=== PATIENT | female | born 1930 | race Caucasian/White ===

== ENCOUNTER 2016-09-22 06:37 | Inpatient (IN) | payer MEDICARE, MEDICAID ==
[~2016-09-22] VITALS: Ht 152.4 cm; Wt 85.5 kg
[2016-09-22] MEDS ORDERED: EPINEPHrine INJ 1 MG/ML 1ML VIAL/AMP As Ordered ONE (06:53)
[2016-09-22] MEDS ORDERED: PROPOFOL 200 MG/20 ML VIAL As Ordered ONE (06:54)
[2016-09-22] MEDS ORDERED: LIDOCAINE 2% INJ 100 MG/5 ML SDV (FOR ANES.) As Ordered ONE (06:54)
[2016-09-22] MEDS ORDERED: LEVALBUTEROL 1.25 MG/0.5 ML CONCENTRATE NEB As Ordered ONE (07:15)
[2016-09-22] MEDS ORDERED: LR 1,000 ML IV SCH (07:15)
[2016-09-22] MEDS ORDERED: LEVALBUTEROL 1.25 MG/0.5 ML CONCENTRATE NEB INH ONE (07:30)
--- NOTE | 2016-09-22 08:07 | ROOR ---
Patient Name: Ashley De Dios Procedure Date: 09/22/2016 7:20 AM Date of : 1930 Age: 86 Room: Main OR Gender: Female Note Status: Finalized Procedure: Colonoscopy to the Splenic Flexure(POOR PREP) Indications: Abnormal CT of the GI tract Providers: Shashank Amezcua MD Referring MD: NICHELLE RAYGOZA JR, MD Requesting Provider: Medicines: Monitored Anesthesia Care Complications: No immediate complications. Procedure: Pre-Anesthesia Assessment: - The heart rate, respiratory rate, oxygen saturations, blood pressure, adequacy of pulmonary ventilation, and response to care were monitored throughout the procedure. The Colonoscope was introduced through the anus and advanced to the splenic flexure. The quality of the bowel preparation was unsatisfactory. Findings: The perianal and digital rectal examinations were normal. Scattered small-mouthed diverticula were found in the recto-sigmoid colon, in the sigmoid colon and in the descending colon. The exam was otherwise without abnormality. A large amount of liquid semi-liquid stool was found in the entire colon, precluding visualization. Area of mucosal thickening was normal at colonoscopy. No intraluminal lesion found from the rectum to the splenic flexure. Scope not advanced beyond splenic flexure due to poor prep. Impression: - Preparation of the colon was unsatisfactory. - Diverticulosis in the recto-sigmoid colon, in the sigmoid colon and in the descending colon. - The examination was otherwise normal. - Stool in the entire examined colon. - No specimens collected. Recommendation: - Patient has a contact number available for emergencies. The signs and symptoms of potential delayed complications were discussed with the patient. Return to normal activities tomorrow. Written discharge instructions were provided to the patient. - Discharge patient to home. - Continue present medications. Shashank Amezcua MD Shashank Amezcua MD 09/22/2016 8:07:15 AM This report has been signed electronically. Number of Addenda: 0 Note Initiated On: 09/22/2016 7:20 AM Estimated Blood Loss: Estimated blood loss: none.
[2016-09-22] MEDS: VITAMIN D 1,000 INTERNATIONAL UNITS TABLET PO SCH (09:00)
[2016-09-22] MEDS ORDERED: LOSARTAN 50 MG TAB PO SCH (09:00)
[2016-09-22] MEDS ORDERED: ONDANSETRON 4MG/2ML VIAL (J2405) As Ordered ONE (09:15)
[2016-09-22] MEDS ORDERED: ONDANSETRON 4MG/2ML VIAL (J2405) IV STA (09:22)
[2016-09-22] MEDS ORDERED: ONDANSETRON 4MG/2ML VIAL (J2405) IV PRN (11:15)
[2016-09-22 11:38] LABS: BASO % 0.2 % (0.0-1.0); EOS % 0.5 % (0.0-3.0); LARGE UNSTAINED CELL # 0.2 K/mm3 (0.0-0.4); LYMPH # 1.6 K/mm3 (1.5-4.5); LYMPH % 19.6 % (24.0-44.0); MEAN CORPUSCULAR HEMOGLOBIN 31.3 pg (27.0-33.0); MEAN CORPUSCULAR HGB CONC 33.7 g/dl (32.0-36.5); MONO # 0.6 K/mm3 (0.0-0.8); MONO % 7.5 % (0.0-5.0); NEUTROPHILS # 5.6 K/mm3 (1.8-7.7); NEUTROPHILS % 70.2 % (36.0-66.0); PLATELET COUNT, AUTOMATED 176 k/mm3 (150-450); RED CELL DISTRIBUTION WIDTH 12.1 % (11.5-14.5)
[2016-09-22 11:50] VITALS: BP 183/92
[2016-09-22] MEDS ORDERED: BISACODYL 10 MG SUPP PR PRN (12:15)
[2016-09-22] MEDS ORDERED: CALCIUM CARBONATE 500 MG CHEW U/D PO PRN (12:15)
[2016-09-22 12:16] LABS: ALBUMIN 3.5 GM/DL (3.2-5.2); ALBUMIN/GLOBULIN RATIO 0.97 (1.00-1.93); BILIRUBIN,TOTAL 0.5 MG/DL (0.2-1.0); CALCIUM LEVEL 9.8 MG/DL (8.8-10.2); CREATININE FOR GFR 1.52 MG/DL (0.55-1.02); GLOMERULAR FILTRATION RATE 34.4 (>32); MAGNESIUM LEVEL 2.1 MG/DL (1.8-2.4); POTASSIUM SERUM 3.5 MEQ/L (3.5-5.1); TOTAL PROTEIN 7.1 GM/DL (6.4-8.2)
[2016-09-22] MEDS ORDERED: GASTROGRAFIN SOLUTION 30ML PO ONE (13:00)
[2016-09-22] MEDS ORDERED: GASTROGRAFIN SOLUTION 30ML (Q9963) PO ONE (13:00)
[2016-09-22] MEDS: SENOKOT S TAB PO SCH ×2 (13:08→21:43)
[2016-09-22] MEDS: HEPARIN SOD (PORCINE) 5000 UNITS/ML VIAL SC SCH ×2 (13:09→21:43)
[2016-09-22] MEDS: LACTOBACILLUS ACIDOPHILUS CAP (BACID) PO SCH (13:09)
[2016-09-22] MEDS: ASPIRIN 81 MG ENTERIC TAB PO SCH (13:10)
[2016-09-22] MEDS ORDERED: POTASSIUM CHLORIDE 10 MEQ SR TABLET PO ONE (13:15)
--- NOTE | 2016-09-22 14:01 | HPE ---
DATE OF ADMISSION: 09/22/2016 PRIMARY CARE PROVIDER: Bennie Faulkner Jr., MD CHIEF COMPLAINT: Abdominal distention. HISTORY OF PRESENT ILLNESS: This is an 86-year-old female patient with underlying medical history of open reduction internal fixation of right ankle, chronic kidney disease (CKD) stage III, baseline creatinine 1.4 to 1.7, diastolic congestive heart failure, ejection fraction of 55-65%, with mild left ventricular hypertrophy (LVH), arthritis, dementia, hypertension, osteoporosis, depression, hyperthyroidism, breast cancer stage I, status post left mastectomy, chronic left shoulder pain, iron deficiency anemia, Clostridium (C) difficile colitis. Patient is a group home resident at [facility]. For the past couple of months has been having persistent abdominal distention. Today, patient was undergoing colonoscopy by Dr. Amezcua to rule out colonic obstruction. As per Dr. Amezcua, the bowel preparation was very poor and he cannot scope beyond the splenic flexure. While in recovery, patient still had persistent abdominal distention and also had one episode of nausea and vomiting. Patient reported abdominal distention has occurred over the past couple of months and has history of C. difficile but has not had any diarrhea for a couple of months. Denies any fever, chills, abdominal pain, chest pain, pressure, or discomfort. Patient is a very poor historian secondary to dementia. Denies any significant cough. Denies any urinary complaints. Denies shortness of breath, headache. Patient says that she frequently vomits after meals. PAST MEDICAL HISTORY: 1. Diastolic congestive heart failure, ejection fraction October 2015 of 55-65% with mild LVH, aortic sclerosis, moderate severe tricuspid regurgitation. 2. CKD stage III, baseline creatinine 1.4 to 1.7. 3. Arthritis. 4. Dementia. 5. Hypertension. 6. Osteoporosis. 7. Depression. 8. Hyperthyroidism. 9. Breast cancer stage I status post left-sided mastectomy. 10. Chronic left shoulder pain. 11. Iron deficiency anemia. PAST SURGICAL HISTORY: 1. Left mastectomy. 2. Trimalleolar fracture status post open reduction internal fixation of right ankle. ALLERGIES: CEPHALOSPORIN and PENICILLIN. SOCIAL HISTORY: Resides at [facility]. Patient has a son named Romie and would like him to be her healthcare proxy. Patient is a nonsmoker. Denies alcohol use or illicit drug use. FAMILY HISTORY: Noncontributory. REVIEW OF SYSTEMS: 11 point review of systems was negative except for those mentioned in the history of present illness (HPI). Patient provides limited history due to dementia. HOME MEDICATIONS: - acetaminophen 975 mg by mouth every 8 hours - aspirin 81 mg by mouth daily - atenolol 25 mg by mouth daily - Dulcolax rectal suppository 10 mg per rectum as needed - bupropion 150 mg by mouth daily - Tums 500 mg by mouth every 4 hours as needed - enema per rectum as needed for constipation - Bacid one tablet by mouth daily - losartan 50 mg by mouth daily - melatonin 1 mg by mouth nightly - methimazole 5 mg by mouth daily - Milk of Magnesia 30 mL by mouth as needed - Paxil 30 mg by mouth daily - vitamin D 1000 units by mouth daily PHYSICAL EXAMINATION: VITAL SIGNS: Temperature 99, pulse 78, blood pressure 183/92, pulse oximetry 96% on room air. GENERAL: Patient alert and oriented times two, comfortable, in no acute distress. HEENT: Normocephalic, atraumatic. PULMONARY: Bilaterally clear to auscultation. ABDOMEN: Distended. Tympanic hypoactive bowel sounds. Nontender. No rebound, no guarding. EXTREMITIES: Trace edema bilateral lower extremities. Bilateral lower extremity weakness. LABORATORY DATA: WBC 8, hemoglobin and hematocrit 13.7/40.8, platelets 176. Chemistry: Sodium 145, potassium 3.5, chloride 106, bicarbonate 29, BUN 36, creatinine 1.5, lactic acid 1.7. Cardiac enzymes negative times one. ASSESSMENT AND PLAN: This is an 86-year-old female patient with underlying medical history of diastolic congestive heart failure, ejection fraction of 55-65%, chronic kidney disease (CKD) stage III, arthritis, dementia, hypertension, osteoporosis, depression, hyperthyroidism, breast cancer stage I, chronic left shoulder pain, iron deficiency anemia, admitted status post colonoscopy for abdominal distention and one episode of nausea and vomiting. PROBLEMS: 1. Abdominal distention and nausea and vomiting. Surgery, Dr. Calderón, consulted. Lipase negative. Lactic acid negative. Followup CT scan. Will evaluate to see if patient needs rectal tube. Possible etiology includes toxic megacolon versus obstructive process. Patient currently nothing by mouth. Intravenous (IV) hydration. Followup surgical recommendations. Advance diet as per surgery. 2. History of diastolic congestive heart failure. Patient currently euvolemic. Monitor fluid status. Strict intake and output. Continue aspirin, metoprolol, losartan. Monitor blood pressure. 3. Hypertension. Continue blood pressure medication as ordered, adjust as needed. 4. Depression. Continue home medications. 5. Chronic kidney disease (CKD). Followup BUN and creatinine, currently at baseline, adjust as needed. 6. History of Clostridium (C) difficile. Continue probiotics. Patient is not having any diarrhea. 7. Hyperthyroidism. Continue methimazole. Will followup thyroid profile. 8. Deep venous thrombosis (DVT) prophylaxis. Heparin subcutaneous. 9. Osteoarthritis and osteoporosis. Supportive care. 10. Dementia. Supportive care. DISPOSITION: Pending surgery consultation, CT scan of the abdomen, clinical improvement.
[2016-09-22] MEDS ORDERED: ISOVUE-370 76% 100ML VIAL (Q9967) As Ordered ONE (14:45)
[2016-09-22] MEDS: PARoxetine 10MG TABLET PO SCH (15:26)
[2016-09-22] MEDS: buPROPion **XL** TABLET 150MG (WELLBUTRIN XL) PO SCH (15:26)
[2016-09-22 15:30] VITALS: BP 235/110
[2016-09-22] MEDS: amLODIPine 5 MG TAB PO SCH (15:34)
[2016-09-22 16:00] VITALS: BP 153/88
[2016-09-22] MEDS ORDERED: NITROGLYCERIN 2% OINT 1 GM *U/D* PKT TOP ONE (16:00)
[2016-09-22] MEDS ORDERED: hydrALAZINE INJ 20 MG/ML VIAL IV ONE (16:00)
--- NOTE | 2016-09-22 19:19 | REP ---
CT STUDY OF THE ABDOMEN AND PELVIS WITH IV AND ORAL CONTRAST: HISTORY: Abdominal distention. Incomplete colonoscopy this date. COMPARISON: CT study 08/23/2016. CT CONTRAST DOSE: 100 mL of Isovue-[address] FINDINGS: Preliminary ophthalmic technologist radiograph again demonstrates diffuse colonic distention which is moderate to marked in degree. The sigmoid colon is quite dilated up to 10 cm in transverse dimension. CT images show no evidence of free intraperitoneal air. There is some subsegmental discoid atelectatic change in the lower lobes in the lungs bilaterally. Cardiomegaly is observed. No focal hepatic or splenic lesion is seen. Gallbladder is unremarkable. No adrenal lesion is seen. There are small cortical cysts bilaterally affecting the kidneys. No hydronephrosis or mass is seen. Renal cortical atrophy is seen. No pancreatic lesion is observed. CT images confirm the presence of diffuse moderate to marked distention of the large bowel from ascending colon to rectum. The small bowel is not dilated. No focal obstructing lesion is seen. No abdominal wall defect is observed. Both hips are replaced and there is spray artifact on pelvic images as a result. No other abnormality. IMPRESSION: 1. Diffuse moderate to marked colonic distention from ascending colon to rectum. No obstructing lesion. 2. No evidence of free air. 3. Renal cortical atrophy and multiple bilateral renal cysts. Signed by Obi Schaefer MD 09/22/2016 07:21 P
[2016-09-22 19:56] VITALS: BP 135/82
[2016-09-22 23:36] VITALS: BP 140/66
[2016-09-23] MEDS ORDERED: SLF 3 ML SYR IV PRN (02:00)
[2016-09-23 04:15] VITALS: BP 151/67
[2016-09-23] MEDS: NITROGLYCERIN 2% OINT 1 GM *U/D* PKT TOP SCH ×2 (05:41)
[2016-09-23] MEDS: HEPARIN SOD (PORCINE) 5000 UNITS/ML VIAL SC SCH (05:42)
[2016-09-23 05:50] LABS: MEAN CORPUSCULAR HEMOGLOBIN 31.6 pg (27.0-33.0); MEAN CORPUSCULAR HGB CONC 33.5 g/dl (32.0-36.5); MEAN CORPUSCULAR VOLUME 94.6 fl (80.0-96.0); WHITE BLOOD COUNT 7.6 K/mm3 (4.0-10.0)
[2016-09-23 06:00] LABS: CALCIUM LEVEL 9.2 MG/DL (8.8-10.2); CREATININE FOR GFR 1.45 MG/DL (0.55-1.02); GLOMERULAR FILTRATION RATE 36.3 (>32); MAGNESIUM LEVEL 1.9 MG/DL (1.8-2.4); POTASSIUM SERUM 3.4 MEQ/L (3.5-5.1)
[2016-09-23] MEDS ORDERED: SLF 3 ML SYR IV SCH (06:00)
--- NOTE | 2016-09-23 06:55 | CR ---
DATE OF CONSULTATION: 09/22/2016 REASON FOR CONSULTATION: Abdominal distension. HISTORY OF PRESENT ILLNESS: The patient is an 86-year-old woman admitted today by Dr. Knott for evaluation and treatment of abdominal distension. The patient had undergone an incomplete colonoscopy by Dr. Amezcua earlier in the day. The patient apparently has had issues with abdominal distension for quite some time. Looking in the medical record, she had a CT scan of the abdomen back in November 2015 that showed significant dilation of the sigmoid and rectum. The patient had a second CT scan in August that showed even more pronounced dilation of the rectum and sigmoid. The rectum measured up to 13 cm in diameter. This appeared to extend all the way down into the pelvis. Evaluation of the rectum was somewhat limited because of bilateral hip prosthesis degrading the images in this area. Dr. Amezcua was performing a colonoscopy to evaluate the patients colon. Apparently her bowel preparation was quite poor and he could only advance the scope to the splenic flexure. His note does indicate that he had not seen any intraluminal masses in the rectum and sigmoid and that the digital rectal exam was normal. The patient in recovery apparently had some persistent abdominal distension with an episode of nausea and vomiting. The patient was admitted by the hospitalist for further evaluation and treatment. HOME MEDICATIONS: Multiple and include: - atenolol - bupropion - losartan - methimazole - Paxil - vitamin D. She has prescriptions for Dulcolax suppositories as needed, enemas as needed and milk of magnesia as needed. ALLERGIES: Are reported to CEPHALOSPORINS and PENICILLINS. SURGICAL HISTORY: According to the records includes a left mastectomy and a fracture of the right ankle. Right and left total hip arthroplasties. MEDICAL HISTORY: Includes diastolic congestive heart failure, chronic kidney disease stage III, arthritis, dementia, hypertension, osteoporosis, depression, hyperthyroidism, breast cancer and anemia. FAMILY HISTORY: Irrelevant. SOCIAL HISTORY: Patient is living at [facility]. Review of systems I did not attempt to recover from the patient. PHYSICAL EXAMINATION: Reveals an elderly woman sitting quietly in the hospital bed. She is dozing when I entered but arouses to voice. She is alert and interactive. She reports her abdomen has been distended for quite some time. She denies any pain. Abdomen is somewhat distended. I do not identify any definite abdominal scars. She has tinkly bowel sounds present, particularly in the mid and upper abdomen. There is tympany to percussion. There is no tenderness to percussion. The abdomen is quite full but somewhat soft, particularly laterally and is nontender to palpation. Laboratory studies done today include a white count of 8000, hemoglobin of 14, hematocrit of 41 and platelet count of 176,000. Differential showed 70% neutrophils, 20% lymphocytes and 8% monocytes. She had a chemistry profile that showed a sodium of 145, potassium 3.5, chloride 106, CO2 of 29, BUN of 36, creatinine 1.5 and glucose of 101. Liver function tests are noted to be normal. Total protein is 7.1 with an albumin of 3.5. She had a CT scan done today that showed persistent dilation of the rectum and sigmoid. The rectal dilation goes all the way down it seems to the pelvic floor. There is much scatter secondary to her bilateral hip prostheses so some detail is lost low in the pelvis. She has basically gaseous dilation of the entire colon. As noted, she has previous CT scans from August 23 and December 13, 2015 that show dilation of the sigmoid and rectum with primarily air in the bowel and some stool. The picture now is significant only in that the gaseous distension involves the entire colon rather than the distal most portions. IMPRESSION: 1. Gaseous distension of colon and rectum without apparent anatomic abnormality based on her colonoscopy today. 2. Multiple other medical problems as detailed previously. RECOMMENDATIONS: At this point, the patient is comfortable and denies any pain. Though she has two CAT scans from November and August as well as one today showing marked distension of the colon, she apparently has been able to live and maintain nutrition based on her current lab studies and an apparent lack of reports of malnutrition. She certainly has some abdominal distension but this may be of no clinical significance if she is able to eat and her elimination is adequate. She has a quite dilated rectum and this may represent primarily loss of muscle tone perhaps worsened by chronic constipation. If there is truly no anatomic abnormality identified such as an obstructing tumor, and clearly nothing was identified on the colonoscopy today, then I think nonoperative management is appropriate. She has had significant changes noted at least back into November 2015. She does not appear to be a good candidate for an elective colectomy for this and as she does not seem to have any pain, there does not seem to be any indication for surgery. As long as the patient's bowels are functional adequately to support nutrition, I see no need to pursue this any further. I will check in tomorrow to see if she has made appropriate progress. MISTY
[2016-09-23] MEDS ORDERED: POTASSIUM CHLORIDE 10 MEQ SR TABLET PO ONE (07:00)
[2016-09-23 07:30] VITALS: BP 159/72
[2016-09-23] MEDS ORDERED: ATENOLOL 25 MG TAB PO SCH (09:00)
[2016-09-23] MEDS: VITAMIN D 1,000 INTERNATIONAL UNITS TABLET PO SCH (10:01)
[2016-09-23] MEDS: LACTOBACILLUS ACIDOPHILUS CAP (BACID) PO SCH (10:01)
[2016-09-23] MEDS: SENOKOT S TAB PO SCH (10:01)
[2016-09-23] MEDS: ASPIRIN 81 MG ENTERIC TAB PO SCH (10:01)
[2016-09-23] MEDS: buPROPion **XL** TABLET 150MG (WELLBUTRIN XL) PO SCH (10:01)
[2016-09-23 10:02] VITALS: BP 159/72
[2016-09-23] MEDS: amLODIPine 5 MG TAB PO SCH (10:02)
[2016-09-23] MEDS: PARoxetine 10MG TABLET PO SCH (10:02)
[2016-09-23] MEDS ORDERED: LOSARTAN 50 MG TAB PO SCH (16:00)
--- NOTE | 2016-09-23 17:04 | DSES ---
DATE OF ADMISSION: 09/22/2016 DATE OF DISCHARGE: 09/23/2016 PRIMARY CARE PROVIDER: Dr. Faulkner FLAT CUTTER: Dr. Amezcua GENERAL SURGEON: Dr. Calderón FINAL DIAGNOSES: 1. Abdominal distention. 2. Nausea and vomiting. 3. History of diastolic congestive heart failure. 4. Hypertensin. 5. Dyslipidemia. 6. Chronic kidney disease (CKD). 7. History of Clostridium (C) difficile. 8. Osteoarthritis. 9. Osteoporosis. 10. Dementia. HISTORY OF PRESENT ILLNESS: This is an 86-year-old female patient with underlying medical history of open reduction and internal fixation of right ankle, chronic kidney disease stage III, obesity, baseline creatinine 1.4 to 1.7, diastolic congestive heart failure, ejection fraction of 55% to 65%, mild left ventricular hypertrophy, arthritis, dementia, hypertension, osteoporosis, depression, hyperthyroidism, breast cancer stage I status post left mastectomy, chronic left shoulder pain, iron deficiency anemia, and Clostridium (C) difficile colitis. The patient was a intermediate resident at [facility] for the past couple of months with persistent abdominal distention, undergoing colonoscopy by Dr. Amezcua on 09/22/2016 to rule out obstruction. As per Dr. Amezcua, bowel preparation was very poor. The scope cannot go beyond splenic flexure. While in recovery, the patient had an episode of nausea and vomiting. Subsequently, Dr. Amezcua had requested admission for observation. The patient denies any chest pain, pressure or discomfort. Denies any fevers or chills. Poor historian secondary to dementia. Denies shortness of breath. HOSPITAL COURSE: The patient was admitted to the hospital. Laboratory test was sent. CT scan appreciated. Surgery, Dr. Calderón, was consulted. As per Dr. Calderón, no obvious point of obstruction, abdominal distention and colonic distention is likely secondary to chronic constipation. The patient is a poor surgical candidate. We will manage conservatively with bowel regimen. The patient, as per Dr. Calderón, can be discharged if able to make bowel movements and tolerate oral. Currently, the patient is making bowel movements and tolerating oral. The patient is back to baseline in no acute distress. Denies any abdominal pain, chest pain, pressure or discomfort. Denies any shortness of breath. VITAL SIGNS: Temperature 97.4, pulse 81, respiratory rate 20, blood pressure 159/72, pulse oximetry 91% on room air. LABORATORY DATA: WBC 7.6, hemoglobin and hematocrit 11.6/34.8, platelets 148. Chemistry: Sodium 144, potassium 3.4, chloride 107, bicarbonate 27, BUN 32, creatinine 1.45. Cardiac enzymes negative times two. DISCHARGE MEDICATIONS: - acetaminophen 975 mg by mouth every eight hours as needed - aspirin 81 mg by mouth daily - atenolol 25 mg by mouth daily - Dulcolax rectal suppository 10 mg per rectum as needed - bupropion 150 mg by mouth daily - TUMS 500 mg by mouth every four hours as needed - enema as needed - Bacid one tablet by mouth daily - losartan 50 mg by mouth daily - melatonin 1 mg by mouth at bedtime - metolazone 5 mg by mouth daily - milk of magnesia 30 mL by mouth daily as needed - Paxil 30 mg by mouth daily - vitamin D 1000 units by mouth daily DISCHARGE INSTRUCTIONS: The patient is instructed to followup with primary care provider in seven days and return to the hospital if symptoms worsen. Please monitor the patient's bowel movements daily at the halfway facility.
--- NOTE | 2016-09-24 16:42 | ECGEPIP ---
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
--- NOTE | 2016-09-29 10:02 | CR ---
DATE: 09/14/2016 Planned procedure is colonoscopy by Dr. Amezcua on 09/22/2016. HISTORY OF PRESENT ILLNESS: Ashley has had frequent difficulty with her bowels, including history of Clostridium (C) difficile with diarrhea, which subsequently has resolved, at which time she has followed with difficulty with episodes of constipation and abdominal bloating. She went to the emergency room on 08/24/2016 due to abdominal distention. She had a CT scan of her abdomen at that time, which was abnormal and showing a possible narrowing in her sigmoid colon. She had a colonoscopy in 2005, which removed benign polyp rectally by Dr. Ferris. Currently, she is not complaining of any abdominal discomfort. Her bowels are moving with laxatives and stool softeners. She has not noted any blood in her stool and the nursing staff have not reported any. She did have anemia in July, however, her August hemoglobin and hematocrit were normal at 13.7 and 41.9. PAST MEDICAL HISTORY: 1. Hypertensive heart and kidney disease. 2. Congestive heart failure (CHF) secondary to diastolic dysfunction. 3. Chronic kidney disease stage III. 4. Hyperthyroidism. 5. Dementia, late onset. 6. Depression and anxiety. 7. Obesity. PAST SURGICAL HISTORY : 1. Left mastectomy for breast cancer. 2. Cataract surgery. 3. Ankle repair. 4. Total hip arthroplasty. SOCIAL HISTORY: She currently resides at [facility]. She does not smoke nor does she drink any alcohol. MEDICATIONS: - melatonin 1 mg daily - atenolol 25 mg daily - Wellbutrin extended release 150 mg daily - Paxil 30 mg daily - vitamin D3 1000 units daily - Tapazole 5 mg daily - acidophilus one capsule twice daily - enteric coated aspirin 81 mg once daily - losartan 50 mg daily - Tylenol 650 mg twice daily - Lasix 20 mg every 2 days - milk of magnesia as needed - bisacodyl tablet 5 mg as needed ALLERGIES: PENICILLIN. FAMILY HISTORY: Noncontributory. REVIEW OF SYSTEMS: Obtained from the patient and the nursing staff. GENERAL: She has not had fever or chills recently. HEENT: She has not had any eye or throat complaints. PULMONARY: She denies any change in her shortness of breath with exertion. Denies orthopnea or paroxysmal nocturnal dyspnea. CARDIAC: Denies chest pain or pressure, palpitations or syncope. GASTROINTESTINAL: As in the history of present illness. In addition, she is denying nausea or vomiting. The nursing staff report a poor appetite, however, her weight has been stable. NEUROLOGIC: No complaint of dizziness or lightheadedness. There is no history of seizures. PSYCHIATRIC : She does have a history of depression and anxiety. PHYSICAL EXAMINATION : She is alert. Her speech is clear and appropriate. She is hard of hearing. VITAL SIGNS: Blood pressure 128/64, heart rate 61 and regular, respiratory rate 16, pulse oximetry 96% on room air. HEENT: Head is normocephalic, atraumatic. Pupils are equal and reactive to light. Sclerae anicteric. NECK: Supple for age. No carotid bruit. No jugular venous distention (JVD) elevation. No lymphadenopathy. CHEST: Symmetrical air entry. Lung sounds are clear except bibasilar crackles. CARDIAC: Mid systolic murmur grade 1 to 2/6, best heard at the base. Heart is regular rate and rhythm. ABDOMEN: Obese, soft, nontender with active bowel sounds. EXTREMITIES: She does have a trace of pretibial edema. GENITOURINARY/RECTAL: Examination deferred. INVESTIGATIONS: 08/24/2016 she had a complete blood count (CBC) that showed a WBC of 6.5, hemoglobin 13.7, hematocrit 41.9, platelets 168,000. This will be repeated at this time. She also had a basic medical panel (BMP) completed at that time, which showed a BUN of 24, creatinine of 1.59, potassium of 3.5. ASSESSMENT AND PLAN: 1. This is a low risk procedure. She is felt to be medically optimized. She will be given her beta sarah and Tapazole the morning of the procedure. The remainder of her medications will be held. The bowel care prep, as requested by Dr. Amezcua, will be completed, beginning on 48 hours prior to her procedure. 2. Hypertensive heart and kidney disease. Her blood pressure is acceptable. 3. Chronic congestive heart failure, secondary diastolic dysfunction. Clinically, she is euvolemic. 4. Hyperthyroidism. She continues on Tapazole. Her TSH and Free T4 are followed. 5. Chronic kidney disease stage III, has been stable. [facility]
== END 2016-09-23 12:14 | DRG 392 ==
LOC: M SDC 06:37 → M PCU 11:08 → M SDC 11:45 → M PCU 11:45
PROVIDERS: ADMIT Hospitalist; ATTEND Hospitalist
PROC: 0DJD8ZZ Inspection of Lower Intestinal Tract, Via Natural or Artificial Opening Endoscopic (ICD-10-PCS; principal; 2016-09-22 07:30)
DX: K59.00 Constipation, unspecified (principal); I50.32 Chronic diastolic (congestive) heart failure; E78.5 Hyperlipidemia, unspecified; I12.9 Hypertensive chronic kidney disease with stage 1 through stage 4 chronic kidney disease, or unspecified chronic kidney disease; M81.0 Age-related osteoporosis without current pathological fracture; R14.0 Abdominal distension (gaseous); E05.90 Thyrotoxicosis, unspecified without thyrotoxic crisis or storm; N18.3 Chronic kidney disease, stage 3 (moderate); F32.9 Major depressive disorder, single episode, unspecified; D50.9 Iron deficiency anemia, unspecified; F03.90 Unspecified dementia, unspecified severity, without behavioral disturbance, psychotic disturbance, mood disturbance, and anxiety; K57.30 Diverticulosis of large intestine without perforation or abscess without bleeding; Z79.82 Long term (current) use of aspirin; Z79.899 Other long term (current) drug therapy; Z85.3 Personal history of malignant neoplasm of breast; Z88.0 Allergy status to penicillin; Z88.1 Allergy status to other antibiotic agents; Z90.12 Acquired absence of left breast and nipple

== ENCOUNTER → 2016-09-22 | Outpatient (REF) | payer MEDICARE, MEDICAID ==
[2016-09-21 08:58] LABS: CALCIUM LEVEL 10.1 MG/DL (8.8-10.2); CREATININE FOR GFR 1.35 MG/DL (0.55-1.02); GLOMERULAR FILTRATION RATE 39.4 (>32); POTASSIUM SERUM 4.5 MEQ/L (3.5-5.1)
[~2016-09-22] MED LIST: ASPI1TAB PO; ASPI325T28 PO; ASPI81TA3 OR; ATEN25TA PO; ATEN50TA2 OR; BACITAB3 PO; BUPR150T3 PO; BUPR75TA5 PO; CALTRATE PO; CO Q1CAP PO; COZA100T OR; COZA100T2 PO; COZA50TA PO; DOCU100C PO; DULC10SU2 PR; ECOT81TA2 PO; ENEM1ENE4 PR; FERR325T PO; FIRS1SOL3 PO; FISH1000 OR; FURO20TA2 PO; ILOTYCIN OU; IMOD2TAB14 PO; LACT10SO8 OR; LASI20TA OR; MELA1TAB PO; MELO15TA4 PO; MILKSUS PO; OXYCO5TA PO; PAXI20TA OR; PAXI30TA11 PO; PERCOCET PO; POTA10CA PO; RESV1CAP2 PO; SILVADENE; SIMV40TA2 OR; TAPA5TAB PO; TAPAZOLE; TRAM50TA2 OR; TUMS500C PO; TYLE325T5 PO; UNIS25TA2 PO; VITA10002 PO; VITA100037 PO; VITA100066 PO; VITA500T88 PO; VITA50TA12 OR; VITMTA PO; XIFA550T PO; [UNRECOGNIZED DRUG - OTHER]; [UNRECOGNIZED DRUG - OTHER] PO
== END ==
LOC: SKLAB4 09:05
PROVIDERS: ATTEND Internal Medicine
DX: I50.9 Heart failure, unspecified (principal)

== ENCOUNTER → 2016-09-28 | Outpatient (REF) | payer MEDICARE, MEDICAID | LOC: SKLAB4 10:16 | PROVIDERS: ATTEND Internal Medicine | DX: E03.9 Hypothyroidism, unspecified (principal) ==

== ENCOUNTER → 2016-12-07 | Outpatient (REF) | payer MEDICARE, MEDICAID ==
[~2016-12-07] MED LIST changes: -ECOT81TA2 PO; +ECOT81TA5 PO; -IMOD2TAB14 PO; +IMOD2TAB16 PO; +OXYC-517 PO; -OXYCO5TA PO
[2016-12-07 08:34] LABS: MEAN CORPUSCULAR HEMOGLOBIN 31.9 pg (27.0-33.0); MEAN CORPUSCULAR HGB CONC 34.7 g/dl (32.0-36.5); MEAN CORPUSCULAR VOLUME 91.9 fl (80.0-96.0); RED CELL DISTRIBUTION WIDTH 12.5 % (11.5-14.5)
[2016-12-07 08:47] LABS: CREATININE FOR GFR 1.64 MG/DL (0.55-1.02); GLOMERULAR FILTRATION RATE 31.5 (>32); POTASSIUM SERUM 4.2 MEQ/L (3.5-5.1)
== END ==
LOC: SKLAB4 09:42
PROVIDERS: ATTEND Internal Medicine
DX: I50.9 Heart failure, unspecified (principal); D64.9 Anemia, unspecified

== ENCOUNTER → 2017-01-04 | Outpatient (REF) | payer MEDICARE, MEDICAID ==
[2017-01-04 09:44] LABS: FREE T4 0.74 NG/DL (0.76-1.46)
== END ==
LOC: SKLAB4 10:24
PROVIDERS: ATTEND Internal Medicine
DX: E03.9 Hypothyroidism, unspecified (principal)

== ENCOUNTER → 2017-03-08 | Outpatient (REF) | payer MEDICARE, MEDICAID ==
[2017-03-08 08:28] LABS: MEAN CORPUSCULAR HEMOGLOBIN 32.3 pg (27.0-33.0); MEAN CORPUSCULAR HGB CONC 33.8 g/dl (32.0-36.5); MEAN CORPUSCULAR VOLUME 95.4 fl (80.0-96.0); RED CELL DISTRIBUTION WIDTH 12.6 % (11.5-14.5); WHITE BLOOD COUNT 5.7 K/mm3 (4.0-10.0)
[2017-03-08 08:44] LABS: CALCIUM LEVEL 9.8 MG/DL (8.8-10.2); CREATININE FOR GFR 1.71 MG/DL (0.55-1.02); POTASSIUM SERUM 3.9 MEQ/L (3.5-5.1)
== END ==
LOC: SKLAB4 09:49
PROVIDERS: ATTEND Internal Medicine
DX: N18.3 Chronic kidney disease, stage 3 (moderate) (principal)

== ENCOUNTER → 2017-04-20 | Outpatient (REF) | payer MEDICARE, MEDICAID ==
[~2017-04-20] MED LIST changes: +BACITAB PO; -BACITAB3 PO; +CO Q100C PO; -CO Q1CAP PO; -DOCU100C PO; +DOCU100C16 PO; +FERR1TAB8 PO; -FERR325T PO; -VITA100037 PO; +VITA100067 PO
[2017-04-20 09:50] LABS: THYROXINE (T4) 6.1 UG/DL (4.5-12.0)
== END ==
LOC: SKLAB4 09:40
PROVIDERS: ATTEND Internal Medicine
DX: E05.90 Thyrotoxicosis, unspecified without thyrotoxic crisis or storm (principal)

== ENCOUNTER → 2017-04-28 | Outpatient (REF) | payer MEDICARE, MEDICAID ==
[2017-04-28 07:43] LABS: CALCIUM LEVEL 9.5 MG/DL (8.8-10.2); CREATININE FOR GFR 1.65 MG/DL (0.55-1.02); GLOMERULAR FILTRATION RATE 31.2 (>32); POTASSIUM SERUM 4.6 MEQ/L (3.5-5.1)
== END ==
LOC: SKLAB4 03:34
PROVIDERS: ATTEND Internal Medicine
DX: N18.9 Chronic kidney disease, unspecified (principal)

== ENCOUNTER → 2017-05-10 | Outpatient (REF) | payer MEDICARE, MEDICAID | LOC: SKLAB4 09:39 | PROVIDERS: ATTEND Internal Medicine | DX: E05.90 Thyrotoxicosis, unspecified without thyrotoxic crisis or storm (principal) ==

== ENCOUNTER → 2017-06-07 | Outpatient (REF) | payer MEDICARE, MEDICAID ==
[2017-06-07 10:15] LABS: MEAN CORPUSCULAR HEMOGLOBIN 31.6 pg (27.0-33.0); MEAN CORPUSCULAR HGB CONC 32.7 g/dl (32.0-36.5); MEAN CORPUSCULAR VOLUME 96.7 fl (80.0-96.0); RED CELL DISTRIBUTION WIDTH 12.8 % (11.5-14.5); WHITE BLOOD COUNT 4.2 K/mm3 (4.0-10.0)
[2017-06-07 10:41] LABS: CALCIUM LEVEL 8.7 MG/DL (8.8-10.2); CREATININE FOR GFR 1.56 MG/DL (0.55-1.02); GLOMERULAR FILTRATION RATE 33.3 (>32); POTASSIUM SERUM 4.2 MEQ/L (3.5-5.1)
== END ==
LOC: SKLAB4 09:55
PROVIDERS: ATTEND Internal Medicine
DX: N18.9 Chronic kidney disease, unspecified (principal); E05.90 Thyrotoxicosis, unspecified without thyrotoxic crisis or storm

== ENCOUNTER → 2017-06-14 | Outpatient (REF) | payer MEDICARE, MEDICAID ==
[2017-06-14 08:34] LABS: MEAN CORPUSCULAR HEMOGLOBIN 32.1 pg (27.0-33.0); MEAN CORPUSCULAR VOLUME 94.4 fl (80.0-96.0); RED CELL DISTRIBUTION WIDTH 12.5 % (11.5-14.5); WHITE BLOOD COUNT 5.1 K/mm3 (4.0-10.0)
[2017-06-14 08:36] LABS: PERCENT SATURATION 20.4 % (13.2-45.0)
== END ==
LOC: SKLAB4 11:07
PROVIDERS: ATTEND Internal Medicine
DX: D64.9 Anemia, unspecified (principal)

== ENCOUNTER → 2017-08-09 | Outpatient (REF) | payer MEDICARE, MEDICAID | LOC: SKLAB4 12:35 | PROVIDERS: ATTEND Internal Medicine | DX: E05.90 Thyrotoxicosis, unspecified without thyrotoxic crisis or storm (principal) ==

== ENCOUNTER → 2017-09-18 | Outpatient (REF) | payer MEDICARE, MEDICAID ==
[2017-09-18 15:33] LABS: MEAN CORPUSCULAR HEMOGLOBIN 31.1 pg (27.0-33.0); MEAN CORPUSCULAR HGB CONC 33.2 g/dl (32.0-36.5); MEAN CORPUSCULAR VOLUME 93.5 fl (80.0-96.0); PLATELET COUNT, AUTOMATED 172 10^3/uL (150-450); RED CELL DISTRIBUTION WIDTH 12.9 % (11.5-14.5); WHITE BLOOD COUNT 10.6 10^3/uL (4.0-10.0)
[2017-09-18 15:57] LABS: ANION GAP 8 MEQ/L (8-16); BLOOD UREA NITROGEN 45 MG/DL (7-18); CALCIUM LEVEL 9.7 MG/DL (8.8-10.2); CARBON DIOXIDE LEVEL 23 MEQ/L (21-32); CHLORIDE LEVEL 112 MEQ/L (98-107); CREATININE FOR GFR 1.63 MG/DL (0.55-1.02); GLOMERULAR FILTRATION RATE 31.6 (>32); GLUCOSE, FASTING 100 MG/DL (83-110); POTASSIUM SERUM 4.7 MEQ/L (3.5-5.1); SODIUM LEVEL 143 MEQ/L (136-145)
== END ==
LOC: M LAB 14:09
DX: R41.0 Disorientation, unspecified (principal)
CPT/HCPCS: 80048

== ENCOUNTER → 2017-09-19 | Outpatient (REF) | payer MEDICARE, MEDICAID | LOC: M LAB 11:28 | DX: R41.0 Disorientation, unspecified (principal) | CPT/HCPCS: 81001 ==

== ENCOUNTER → 2017-09-23 | Outpatient (REF) | payer MEDICARE, MEDICAID ==
[2017-09-23 10:54] LABS: HEMATOCRIT 33.9 % (36.0-47.0); HEMOGLOBIN 11.4 g/dl (12.0-16.0); MEAN CORPUSCULAR HEMOGLOBIN 31.1 pg (27.0-33.0); MEAN CORPUSCULAR HGB CONC 33.6 g/dl (32.0-36.5); MEAN CORPUSCULAR VOLUME 92.4 fl (80.0-96.0); PLATELET COUNT, AUTOMATED 197 10^3/uL (150-450); RED BLOOD COUNT 3.67 10^6/uL (4.00-5.40); WHITE BLOOD COUNT 13.2 10^3/uL (4.0-10.0)
[2017-09-23 11:20] LABS: ANION GAP 6 MEQ/L (8-16); BLOOD UREA NITROGEN 59 MG/DL (7-18); CALCIUM LEVEL 9.8 MG/DL (8.8-10.2); CARBON DIOXIDE LEVEL 23 MEQ/L (21-32); CHLORIDE LEVEL 110 MEQ/L (98-107); CREATININE FOR GFR 2.03 MG/DL (0.55-1.02); GLOMERULAR FILTRATION RATE 24.5 (>32); GLUCOSE, FASTING 99 MG/DL (83-110); POTASSIUM SERUM 4.7 MEQ/L (3.5-5.1); SODIUM LEVEL 139 MEQ/L (136-145)
== END ==
LOC: SKLAB4 09:39
DX: R14.0 Abdominal distension (gaseous) (principal)

== ENCOUNTER → 2017-09-24 | Outpatient (REF) | payer MEDICARE, MEDICAID ==
[2017-09-24 10:24] LABS: HEMATOCRIT 34.2 % (36.0-47.0); HEMOGLOBIN 11.2 g/dl (12.0-16.0); MEAN CORPUSCULAR HEMOGLOBIN 30.6 pg (27.0-33.0); MEAN CORPUSCULAR HGB CONC 32.7 g/dl (32.0-36.5); MEAN CORPUSCULAR VOLUME 93.4 fl (80.0-96.0); PLATELET COUNT, AUTOMATED 192 10^3/uL (150-450); RED BLOOD COUNT 3.66 10^6/uL (4.00-5.40); WHITE BLOOD COUNT 14.6 10^3/uL (4.0-10.0)
[2017-09-24 10:48] LABS: ANION GAP 7 MEQ/L (8-16); BLOOD UREA NITROGEN 62 MG/DL (7-18); CALCIUM LEVEL 9.3 MG/DL (8.8-10.2); CARBON DIOXIDE LEVEL 25 MEQ/L (21-32); CHLORIDE LEVEL 107 MEQ/L (98-107); CREATININE FOR GFR 1.96 MG/DL (0.55-1.02); GLOMERULAR FILTRATION RATE 25.6 (>32); GLUCOSE, FASTING 111 MG/DL (83-110); POTASSIUM SERUM 4.9 MEQ/L (3.5-5.1); SODIUM LEVEL 139 MEQ/L (136-145)
== END ==
LOC: SKLAB4 08:49
DX: R14.0 Abdominal distension (gaseous) (principal); I50.9 Heart failure, unspecified

== ENCOUNTER → 2017-10-23 | Outpatient (REF) | payer MEDICARE, MEDICAID | LOC: M RAD 13:43 | DX: R60.0 Localized edema (principal) | CPT/HCPCS: 93971 ==

== ENCOUNTER → 2017-11-03 | Outpatient (REF) | payer MEDICARE, MEDICAID ==
[2017-11-03 10:28] LABS: INFLUENZA A AMPLIFICATION POSITIVE (NEGATIVE); INFLUENZA B AMPLIFICATION NEGATIVE (NEGATIVE); RSV AMPLIFICATION NEGATIVE (NEGATIVE)
== END ==
LOC: SKLAB4 09:41
DX: R05 Cough (principal); R09.89 Other specified symptoms and signs involving the circulatory and respiratory systems; R50.9 Fever, unspecified
CPT/HCPCS: 87631

== ENCOUNTER → 2017-11-10 | Outpatient (REF) | payer MEDICARE, MEDICAID ==
[2017-11-10 21:30] LABS: HEMOGLOBIN 11.4 g/dl (12.0-16.0); MEAN CORPUSCULAR HEMOGLOBIN 31.1 pg (27.0-33.0); MEAN CORPUSCULAR HGB CONC 33.5 g/dl (32.0-36.5); MEAN CORPUSCULAR VOLUME 92.9 fl (80.0-96.0); PLATELET COUNT, AUTOMATED 136 10^3/uL (150-450); RED BLOOD COUNT 3.66 10^6/uL (4.00-5.40); RED CELL DISTRIBUTION WIDTH 13.7 % (11.5-14.5); WHITE BLOOD COUNT 4.5 10^3/uL (4.0-10.0)
[2017-11-10 21:46] LABS: ANION GAP 6 MEQ/L (8-16); BLOOD UREA NITROGEN 18 MG/DL (7-18); CALCIUM LEVEL 8.8 MG/DL (8.8-10.2); CARBON DIOXIDE LEVEL 27 MEQ/L (21-32); CHLORIDE LEVEL 111 MEQ/L (98-107); CREATININE FOR GFR 1.02 MG/DL (0.55-1.30); GLOMERULAR FILTRATION RATE 54.3 (>32); GLUCOSE, FASTING 108 MG/DL (70-100); POTASSIUM SERUM 2.9 MEQ/L (3.5-5.1); SODIUM LEVEL 144 MEQ/L (136-145)
== END ==
LOC: SKLAB4 08:10
DX: R09.81 Nasal congestion (principal); R06.2 Wheezing
CPT/HCPCS: 71045

== ENCOUNTER → 2017-11-11 | Outpatient (REF) | payer MEDICARE, MEDICAID ==
[2017-11-11 10:06] LABS: HEMATOCRIT 33.7 % (36.0-47.0); HEMOGLOBIN 11.1 g/dl (12.0-16.0); MEAN CORPUSCULAR HEMOGLOBIN 30.7 pg (27.0-33.0); MEAN CORPUSCULAR HGB CONC 32.9 g/dl (32.0-36.5); MEAN CORPUSCULAR VOLUME 93.4 fl (80.0-96.0); PLATELET COUNT, AUTOMATED 141 10^3/uL (150-450); RED BLOOD COUNT 3.61 10^6/uL (4.00-5.40); RED CELL DISTRIBUTION WIDTH 13.7 % (11.5-14.5); WHITE BLOOD COUNT 5.2 10^3/uL (4.0-10.0)
[2017-11-11 10:29] LABS: ANION GAP 6 MEQ/L (8-16); BLOOD UREA NITROGEN 16 MG/DL (7-18); CALCIUM LEVEL 8.6 MG/DL (8.8-10.2); CARBON DIOXIDE LEVEL 29 MEQ/L (21-32); CHLORIDE LEVEL 110 MEQ/L (98-107); CREATININE FOR GFR 1.03 MG/DL (0.55-1.30); GLOMERULAR FILTRATION RATE 53.7 (>32); GLUCOSE, FASTING 103 MG/DL (70-100); POTASSIUM SERUM 3.3 MEQ/L (3.5-5.1); SODIUM LEVEL 145 MEQ/L (136-145)
== END ==
LOC: SKLAB4 07:09
DX: R10.30 Lower abdominal pain, unspecified (principal)
CPT/HCPCS: 74019

== ENCOUNTER 2017-11-12 13:07 | Emergency (ER) | payer MEDICARE, MEDICAID ==
[2017-11-12] MEDS: GASTROGRAFIN SOLUTION 30ML PO ×2 (14:43→15:15)
[2017-11-12 15:44] LABS: BASO % 0.1 % (0.0-1.0); EOS # 0.1 10^3/uL (0.0-0.50); HEMATOCRIT 37.6 % (36.0-47.0); HEMOGLOBIN 12.6 g/dl (12.0-16.0); IMMATURE GRANULOCYTE % 0.3 % (0-3.0); LYMPH # 1.8 10^3/uL (1.5-4.5); MEAN CORPUSCULAR HGB CONC 33.5 g/dl (32.0-36.5); MEAN CORPUSCULAR VOLUME 92.4 fl (80.0-96.0); MONO # 0.7 10^3/uL (0.0-0.8); MONO % 9.7 % (0.0-5.0); NEUTROPHILS # 4.7 10^3/uL (1.8-7.7); NEUTROPHILS % 64.9 % (36.0-66.0); RED BLOOD COUNT 4.07 10^6/uL (4.00-5.40); RED CELL DISTRIBUTION WIDTH 13.9 % (11.5-14.5); WHITE BLOOD COUNT 7.3 10^3/uL (4.0-10.0)
[2017-11-12] MEDS: NS 1,000 ML IV (15:46)
[2017-11-12 15:53] LABS: ANION GAP 6 MEQ/L (8-16); BLOOD UREA NITROGEN 14 MG/DL (7-18); CALCIUM LEVEL 8.5 MG/DL (8.8-10.2); CARBON DIOXIDE LEVEL 28 MEQ/L (21-32); CHLORIDE LEVEL 112 MEQ/L (98-107); CREATININE FOR GFR 1.13 MG/DL (0.55-1.30); GLOMERULAR FILTRATION RATE 48.3 (>32); GLUCOSE, FASTING 90 MG/DL (70-100); POTASSIUM SERUM 3.6 MEQ/L (3.5-5.1); SODIUM LEVEL 146 MEQ/L (136-145)
[2017-11-12 15:59] LABS: POS COUNT POS FLAG
[2017-11-12 16:00] LABS: PLATELET COUNT, AUTOMATED 133 10^3/uL (150-450)
[2017-11-12] MEDS ORDERED: ISOVUE-370 76% 100ML VIAL (Q9967) As Ordered (16:30)
[2017-11-12 17:38] LABS: LACTIC ACID SEPSIS PROTOCOL 1.2 MMOL/L (0.4-2.0)
== END 2017-11-12 19:00 | disposition home or self-care (01) ==
LOC: M ED 13:07
DX: K56.699 Other intestinal obstruction unspecified as to partial versus complete obstruction (principal); I13.0 Hypertensive heart and chronic kidney disease with heart failure and stage 1 through stage 4 chronic kidney disease, or unspecified chronic kidney disease; N18.3 Chronic kidney disease, stage 3 (moderate); I50.30 Unspecified diastolic (congestive) heart failure; Z85.3 Personal history of malignant neoplasm of breast; F32.9 Major depressive disorder, single episode, unspecified; F03.90 Unspecified dementia, unspecified severity, without behavioral disturbance, psychotic disturbance, mood disturbance, and anxiety; M19.90 Unspecified osteoarthritis, unspecified site; M81.0 Age-related osteoporosis without current pathological fracture; E03.9 Hypothyroidism, unspecified; D50.9 Iron deficiency anemia, unspecified; M25.512 Pain in left shoulder; E87.6 Hypokalemia; Z88.0 Allergy status to penicillin; Z88.1 Allergy status to other antibiotic agents; Z79.899 Other long term (current) drug therapy; Z79.82 Long term (current) use of aspirin
CPT/HCPCS: Q9963

== ENCOUNTER → 2017-11-12 | Outpatient (REF) | payer MEDICARE, MEDICAID ==
[2017-11-12 08:07] LABS: HEMATOCRIT 34.7 % (36.0-47.0); HEMOGLOBIN 11.7 g/dl (12.0-16.0); MEAN CORPUSCULAR HEMOGLOBIN 31.6 pg (27.0-33.0); MEAN CORPUSCULAR HGB CONC 33.7 g/dl (32.0-36.5); MEAN CORPUSCULAR VOLUME 93.8 fl (80.0-96.0); RED CELL DISTRIBUTION WIDTH 13.9 % (11.5-14.5); WHITE BLOOD COUNT 7.5 10^3/uL (4.0-10.0)
[2017-11-12 08:24] LABS: ANION GAP 6 MEQ/L (8-16); BLOOD UREA NITROGEN 15 MG/DL (7-18); CALCIUM LEVEL 8.7 MG/DL (8.8-10.2); CARBON DIOXIDE LEVEL 29 MEQ/L (21-32); CHLORIDE LEVEL 113 MEQ/L (98-107); CREATININE FOR GFR 1.16 MG/DL (0.55-1.30); GLOMERULAR FILTRATION RATE 46.8 (>32); GLUCOSE, FASTING 93 MG/DL (70-100); POTASSIUM SERUM 2.9 MEQ/L (3.5-5.1); SODIUM LEVEL 148 MEQ/L (136-145)
[2017-11-12 08:31] LABS: PLATELET COUNT, AUTOMATED 119 10^3/uL (150-450); POS COUNT POS FLAG
== END ==
LOC: SKLAB4 09:57
DX: K56.699 Other intestinal obstruction unspecified as to partial versus complete obstruction (principal); E87.6 Hypokalemia
CPT/HCPCS: 74019

== ENCOUNTER → 2017-11-13 | Outpatient (REF) | payer MEDICARE, MEDICAID ==
[2017-11-13 07:40] LABS: ANION GAP 6 MEQ/L (8-16); BLOOD UREA NITROGEN 14 MG/DL (7-18); CALCIUM LEVEL 8.2 MG/DL (8.8-10.2); CARBON DIOXIDE LEVEL 30 MEQ/L (21-32); CHLORIDE LEVEL 112 MEQ/L (98-107); CREATININE FOR GFR 1.17 MG/DL (0.55-1.30); GLOMERULAR FILTRATION RATE 46.4 (>32); GLUCOSE, FASTING 87 MG/DL (70-100); POTASSIUM SERUM 3.1 MEQ/L (3.5-5.1); SODIUM LEVEL 148 MEQ/L (136-145)
== END ==
LOC: SKLAB4 07:37
DX: E87.5 Hyperkalemia (principal)
CPT/HCPCS: 36415

== ENCOUNTER → 2017-11-14 | Outpatient (REF) | payer MEDICARE, MEDICAID ==
[2017-11-14 07:05] LABS: ANION GAP 6 MEQ/L (8-16); BLOOD UREA NITROGEN 15 MG/DL (7-18); CALCIUM LEVEL 8.5 MG/DL (8.8-10.2); CARBON DIOXIDE LEVEL 27 MEQ/L (21-32); CHLORIDE LEVEL 113 MEQ/L (98-107); CREATININE FOR GFR 1.15 MG/DL (0.55-1.30); GLOMERULAR FILTRATION RATE 47.3 (>32); GLUCOSE, FASTING 90 MG/DL (70-100); POTASSIUM SERUM 3.8 MEQ/L (3.5-5.1); SODIUM LEVEL 146 MEQ/L (136-145)
== END ==
LOC: SKLAB4 07:37
DX: E87.5 Hyperkalemia (principal)
CPT/HCPCS: 80048

== ENCOUNTER → 2017-11-15 | Outpatient (REF) | payer MEDICARE, MEDICAID ==
[2017-11-15 08:35] LABS: ANION GAP 3 MEQ/L (8-16); BLOOD UREA NITROGEN 14 MG/DL (7-18); CALCIUM LEVEL 9.1 MG/DL (8.8-10.2); CARBON DIOXIDE LEVEL 30 MEQ/L (21-32); CHLORIDE LEVEL 112 MEQ/L (98-107); CREATININE FOR GFR 1.07 MG/DL (0.55-1.30); FREE T4 1.15 NG/DL (0.76-1.46); GLOMERULAR FILTRATION RATE 51.4 (>32); GLUCOSE, FASTING 101 MG/DL (70-100); POTASSIUM SERUM 4.4 MEQ/L (3.5-5.1); SODIUM LEVEL 145 MEQ/L (136-145)
== END ==
LOC: SKLAB4 07:49
DX: R06.2 Wheezing (principal); E03.9 Hypothyroidism, unspecified; I51.7 Cardiomegaly; R93.3 Abnormal findings on diagnostic imaging of other parts of digestive tract
CPT/HCPCS: 71046

== ENCOUNTER → 2017-11-19 | Outpatient (REF) | payer MEDICARE, MEDICAID ==
[2017-11-19 08:41] LABS: ANION GAP 5 MEQ/L (8-16); BLOOD UREA NITROGEN 16 MG/DL (7-18); CARBON DIOXIDE LEVEL 30 MEQ/L (21-32); CHLORIDE LEVEL 109 MEQ/L (98-107); CREATININE FOR GFR 1.23 MG/DL (0.55-1.30); GLOMERULAR FILTRATION RATE 43.8 (>32); GLUCOSE, FASTING 83 MG/DL (70-100); POTASSIUM SERUM 3.6 MEQ/L (3.5-5.1); SODIUM LEVEL 144 MEQ/L (136-145)
== END ==
LOC: SKLAB4 09:08
DX: E87.6 Hypokalemia (principal)
CPT/HCPCS: 36415

== ENCOUNTER → 2017-11-26 | Outpatient (REF) | payer MEDICARE, MEDICAID ==
[2017-11-26 07:49] LABS: ANION GAP 6 MEQ/L (8-16); BLOOD UREA NITROGEN 23 MG/DL (7-18); CALCIUM LEVEL 9.3 MG/DL (8.8-10.2); CARBON DIOXIDE LEVEL 27 MEQ/L (21-32); CHLORIDE LEVEL 110 MEQ/L (98-107); CREATININE FOR GFR 1.09 MG/DL (0.55-1.30); GLOMERULAR FILTRATION RATE 50.3 (>32); GLUCOSE, FASTING 89 MG/DL (70-100); POTASSIUM SERUM 4.1 MEQ/L (3.5-5.1); SODIUM LEVEL 143 MEQ/L (136-145)
== END ==
LOC: SKLAB4 09:53
DX: E87.6 Hypokalemia (principal)
CPT/HCPCS: 36415

== ENCOUNTER → 2017-12-06 | Outpatient (REF) | payer MEDICARE, MEDICAID ==
[2017-12-06 08:27] LABS: HEMATOCRIT 35.8 % (36.0-47.0); HEMOGLOBIN 11.6 g/dl (12.0-16.0); MEAN CORPUSCULAR HEMOGLOBIN 30.9 pg (27.0-33.0); MEAN CORPUSCULAR HGB CONC 32.4 g/dl (32.0-36.5); MEAN CORPUSCULAR VOLUME 95.2 fl (80.0-96.0); PLATELET COUNT, AUTOMATED 154 10^3/uL (150-450); RED BLOOD COUNT 3.76 10^6/uL (4.00-5.40); RED CELL DISTRIBUTION WIDTH 13.9 % (11.5-14.5)
[2017-12-06 09:00] LABS: ANION GAP 7 MEQ/L (8-16); BLOOD UREA NITROGEN 38 MG/DL (7-18); CALCIUM LEVEL 9.3 MG/DL (8.8-10.2); CARBON DIOXIDE LEVEL 27 MEQ/L (21-32); CHLORIDE LEVEL 108 MEQ/L (98-107); CREATININE FOR GFR 1.54 MG/DL (0.55-1.30); GLOMERULAR FILTRATION RATE 33.8 (>32); GLUCOSE, FASTING 82 MG/DL (70-100); SODIUM LEVEL 142 MEQ/L (136-145)
== END ==
LOC: SKLAB4 09:25
DX: E03.9 Hypothyroidism, unspecified (principal); I50.9 Heart failure, unspecified; N18.4 Chronic kidney disease, stage 4 (severe)
CPT/HCPCS: 84443

== ENCOUNTER → 2018-01-03 | Outpatient (REF) | payer MEDICARE, MEDICAID ==
[2018-01-03 08:21] LABS: ANION GAP 5 MEQ/L (8-16); BLOOD UREA NITROGEN 37 MG/DL (7-18); CARBON DIOXIDE LEVEL 28 MEQ/L (21-32); CHLORIDE LEVEL 110 MEQ/L (98-107); CREATININE FOR GFR 1.24 MG/DL (0.55-1.30); GLOMERULAR FILTRATION RATE 43.4 (>32); GLUCOSE, FASTING 84 MG/DL (70-100); POTASSIUM SERUM 4.7 MEQ/L (3.5-5.1); SODIUM LEVEL 143 MEQ/L (136-145)
== END ==
LOC: SKLAB4 09:45
DX: E87.5 Hyperkalemia (principal); Z79.899 Other long term (current) drug therapy
CPT/HCPCS: 84443

== ENCOUNTER → 2018-02-07 | Outpatient (REF) | payer MEDICARE, MEDICAID ==
[2018-02-07 09:44] LABS: FREE T4 0.86 NG/DL (0.76-1.46)
== END ==
LOC: SKLAB4 09:29
DX: E03.9 Hypothyroidism, unspecified (principal)
CPT/HCPCS: 36415

== ENCOUNTER → 2018-02-15 | Outpatient (REF) | payer MEDICARE, MEDICAID | LOC: SKLAB4 10:23 | DX: E03.9 Hypothyroidism, unspecified (principal) | CPT/HCPCS: 84443 ==